=== PATIENT | male | born 1960 | race Two or more races ===

== ENCOUNTER 2016-09-24 21:58 | Emergency (ER) | payer BC ==
[2016-09-24 22:07] VITALS: BP 135/88
[2016-09-24 22:34] VITALS: BMI 24.1
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
--- NOTE | 2016-09-25 00:14 | RAD ---
EXAM: Left knee x-ray INDICATION: Pain COMPARISION: No priors TECHNIQUE: AP, lateral, and oblique, three views FINDINGS: No acute fracture or dislocation. There is no evidence of an intraosseous lesion. The joint spaces a re preserved. No joint effusion is identified. The surrounding soft tissues appear unremarkable. The re is no evidence of a radiopaque foreign body. IMPRESSION: Normal left knee x-ray exam Reported By:
--- NOTE | 2016-09-25 00:14 | RAD ---
EXAM: Right knee x-ray INDICATION: Pain COMPARISION: No priors TECHNIQUE: AP, lateral, and oblique, three views FINDINGS: No acute fracture or dislocation. There is no evidence of an intraosseous lesion. The joint spaces a re preserved. No joint effusion is identified. The surrounding soft tissues appear unremarkable. The re is no evidence of a radiopaque foreign body. IMPRESSION: Normal right knee x-ray exam Reported By:
== END 2016-09-25 01:31 | disposition home or self-care (01) ==
LOC: ER 22:15
DX: S83.91XA Sprain of unspecified site of right knee, initial encounter (principal); S00.83XA Contusion of other part of head, initial encounter; V03.10XA Pedestrian on foot injured in collision with car, pick-up truck or van in traffic accident, initial encounter
CPT/HCPCS: 73564; 99282; 99283

== ENCOUNTER → 2016-10-07 | Outpatient (CLI) | payer BC ==
[2016-09-24 22:07] VITALS: BP 135/88
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
== END ==
LOC: RAD 16:40
PROVIDERS: ATTEND Specialist
DX: M25.512 Pain in left shoulder (principal)
CPT/HCPCS: 73030